=== PATIENT | female | born 1950 | race African-American/Black ===

== ENCOUNTER 2019-04-21 17:46 | Emergency (ER) | payer OTHER, MEDICARE ==
[~2019-04-21] VITALS: Ht 170.2 cm; Wt 72.0 kg
[~2019-04-21 17:46] MED LIST: ASPI81TA45 PO; ATOR40TA78 PO; CALC400T6 PO; CLOP75TA PO; CYCL-259 PO; DIAZ10TA4 PO; DIAZ5TAB PO; GLIP5TAB10 PO; LISI-170 PO; LORA-446 PO; MAGN400O7 PO; METF-163 PO; METF100P3 PO; METO-99 PO; METO25TA35 PO; METO50TA82 PO; ONDA4TAB7 PO; PROP10TA51 PO; SENN-177 PO; SERT50TA28 PO; TRAZ-137 PO; TRAZ150T62 PO
[2019-04-21 18:27] LABS: BASOPHILS # (AUTO) 0.03 x10^3/uL (0-0.1); BASOPHILS % (AUTO) 0 % (0-1); EOSINOPHILS # (AUTO) 0.11 x10^3/uL (0-0.4); EOSINOPHILS % (AUTO) 1 % (1-7); LYMPHOCYTES # (AUTO) 2.46 x10^3/uL (1-3.4); LYMPHOCYTES % (AUTO) 21 % (22-44); MD NO; MEAN CORPUSCULAR HEMOGLOBIN 32.3 pg (27.0-34.8); MEAN CORPUSCULAR VOLUME 97.8 fL (80-100); MEAN PLATELET VOLUME 9.3 fL (7.4-10.4); MONOCYTES # (AUTO) 0.81 x10^3/uL (0.2-0.8); MONOCYTES % (AUTO) 7 % (2-9); NEUTROPHILS # (AUTO) 8.39 x10^3/uL (1.8-6.8); NEUTROPHILS % (AUTO) 71 % (42-75); PLATELET COUNT 304 x10^3/uL (130-400); RED BLOOD COUNT 4.13 x10^6/uL (3.82-5.3); RED CELL DISTRIBUTION WIDTH 15.8 % (9.6-15.2)
[2019-04-21 18:36] LABS: ANION GAP 6 mmol/L (5-15); CALCIUM 9.7 mg/dL (8.5-10.1); CHLORIDE 103 mmol/L (98-107); CREATININE 1.39 mg/dL (0.55-1.02)
--- NOTE | 2019-04-21 18:37 | NUR ---
PT TO ROOM FROM LOBBY BY WHEELCHAIR. NAD NOTED.
[2019-04-21] MEDS ORDERED: MECLIZINE CHEWABLE 25 MG TAB PO ONE (19:30)
[2019-04-21] MEDS ORDERED: MECLIZINE CHEWABLE 25 MG TAB ONE (19:49)
--- NOTE | 2019-04-21 19:57 | NUR ---
PT RESTING IN BED WATCHING FOOTBALL GAME.
[2019-04-21 20:28] LABS: TROPONIN I < 0.015 ng/mL (0.000-0.045)
[2019-04-21] MEDS ORDERED: SODIUM CHLORIDE 0.9% 1,000ML IVBOLUS ONE (21:00)
[2019-04-21] MEDS ORDERED: SODIUM CHLORIDE FLUSH 10ML SYR IVF ONE (21:00)
[2019-04-21 21:06] LABS: MICROSCOPIC AUTO
[2019-04-21 21:09] LABS: CULTURE INDICATED? YES
[2019-04-21 23:25] VITALS: BP 144/78
== END 2019-04-21 23:28 | disposition home or self-care (01) ==
LOC: ED 20:49
DX: R42 Dizziness and giddiness (principal); R55 Syncope and collapse; I12.9 Hypertensive chronic kidney disease with stage 1 through stage 4 chronic kidney disease, or unspecified chronic kidney disease; N18.9 Chronic kidney disease, unspecified; I48.91 Unspecified atrial fibrillation
CPT/HCPCS: 36415; 80048; 81001; 82040; 84484; 85025; 87086; 93005; 96360; 96361; 99284; J7030; 87147

== ENCOUNTER 2019-08-11 16:02 | Emergency (ER) | payer MEDICARE ==
[~2019-08-11] VITALS: Ht 170.2 cm; Wt 74.5 kg
[2019-08-11 17:18] LABS: BASOPHILS # (AUTO) 0.05 x10^3/uL (0-0.1); BASOPHILS % (AUTO) 1 % (0-1); EOSINOPHILS # (AUTO) 0.08 x10^3/uL (0-0.4); EOSINOPHILS % (AUTO) 1 % (1-7); LYMPHOCYTES # (AUTO) 2.08 x10^3/uL (1-3.4); LYMPHOCYTES % (AUTO) 22 % (22-44); MD NO; MEAN CORPUSCULAR HEMOGLOBIN 30.4 pg (27.0-34.8); MEAN CORPUSCULAR HGB CONC 32.5 g/dL (32.4-35.8); MEAN CORPUSCULAR VOLUME 93.3 fL (80-100); MEAN PLATELET VOLUME 9.4 fL (7.4-10.4); MONOCYTES # (AUTO) 0.71 x10^3/uL (0.2-0.8); MONOCYTES % (AUTO) 7 % (2-9); NEUTROPHILS # (AUTO) 6.76 x10^3/uL (1.8-6.8); NEUTROPHILS % (AUTO) 70 % (42-75); PLATELET COUNT 298 x10^3/uL (130-400); RED BLOOD COUNT 4.44 x10^6/uL (3.82-5.3); RED CELL DISTRIBUTION WIDTH 14.5 % (9.6-15.2)
[2019-08-11 17:33] LABS: ANION GAP 6 mmol/L (5-15); CALCIUM 9.4 mg/dL (8.5-10.1); CHLORIDE 96 mmol/L (98-107); CREATININE 1.92 mg/dL (0.55-1.02)
--- NOTE | 2019-08-11 19:05 | NUR ---
PT NIL X 1
[2019-08-11 19:51] LABS: TROPONIN I < 0.015 ng/mL (0.000-0.045)
--- NOTE | 2019-08-11 19:57 | NUR ---
PT BACK TO ROOM AT THIS TIME.
--- NOTE | 2019-08-11 20:05 | NUR ---
PT REPORTS HOME GLUCOMETER READING AT 460 THIS AM., CALLED PRIMARY CARE AND THEY RECOMMENDED SHE BE EVALUATED. DENIES ANY OTHER C/O AT THIS TIME, NO N/V/D, DENIES PEÑA
[2019-08-11] MEDS ORDERED: INSULIN REGULAR 100 UNITS/ML, 3ML VIAL SQ-INSULIN SCH (21:00)
[2019-08-11] MEDS ORDERED: POTASSIUM CHLORIDE 20 MEQ TAB.ER.PRT PO ONE (21:00)
[2019-08-11] MEDS ORDERED: POTASSIUM CHLORIDE 20 MEQ TAB.ER.PRT ONE (21:03)
[2019-08-11] MEDS ORDERED: INSULIN SINGLE DOSE, ER ONE (21:04)
[2019-08-11 21:07] VITALS: BP 142/92
--- NOTE | 2019-08-11 21:10 | NUR ---
PT RESTING ON GURNEY WATCHING TV. MEDICATED PER MAR, VSS. ALL SAFETY MEASURES IN PLACE, PO FLUIDS PROVIDED.
--- NOTE | 2019-08-11 22:06 | NUR ---
PT BS DISCUSSED WITH DR. WARD WHO APPROVED PT D/C HOME.
== END 2019-08-11 22:20 | disposition home or self-care (01) ==
LOC: ED 22:15
DX: R73.9 Hyperglycemia, unspecified (principal); I10 Essential (primary) hypertension; I48.91 Unspecified atrial fibrillation; Z72.89 Other problems related to lifestyle; Z87.891 Personal history of nicotine dependence
CPT/HCPCS: 36415; 80048; 84484; 85025; 93005; 96372; 99284; J1815

== ENCOUNTER 2020-06-28 11:07 | Outpatient (CLI) | payer MEDICARE ==
[~2020-06-28 11:07] MED LIST changes: +ACID1TAB7 PO; +AMOX-291 PO; +ASPI-650 PO; +CARV3.1212 PO; +DIAZ2TAB PO; +DOXY100T PO; +DULO30CA2 PO; +FERR-51 PO; +GLIP10TA13 PO; +HYDR-3237 PO; +INSU100C5 SQ-INSULIN; +OMEP-110 PO; +OMEP20CA20 PO; -TRAZ-137 PO; +TRAZ-175 PO
[2020-06-28] MEDS ORDERED: ALBU90AE INH (12:39)
[2020-06-28] MEDS ORDERED: KETAMINE (12:39)
[2020-06-28] MEDS ORDERED: SERT50TA28 PO (12:39)
[2020-06-28] MEDS ORDERED: FAMO-79 PO (12:39)
[2020-06-28] MEDS ORDERED: clonidine (12:39)
[2020-06-28] MEDS ORDERED: ATOR40TA78 PO (12:39)
[2020-06-28] MEDS ORDERED: hydromorphone (12:39)
[2020-06-28] MEDS ORDERED: LISI-167 PO (12:39)
[2020-06-28] MEDS ORDERED: METO-93 PO (12:39)
[2020-06-28] MEDS ORDERED: GLIP10TA13 PO (12:39)
== END 2020-06-28 23:59 | disposition home or self-care (01) ==
LOC: STAR 11:07
PROVIDERS: ATTEND Internal Medicine Gastroenterology
DX: Z02.9 Encounter for administrative examinations, unspecified (principal)

== ENCOUNTER 2020-07-01 05:38 | Day surgery (SDC) | payer MEDICARE ==
[2020-06-28 13:03] LABS: ALANINE AMINOTRANSFERASE 20 U/L (12-78); ALBUMIN 3.9 g/dL (3.4-5.0); ANION GAP 5 mmol/L (5-15); CALCIUM 8.5 mg/dL (8.5-10.1); CHLORIDE 106 mmol/L (98-107); CREATININE 2.41 mg/dL (0.55-1.02)
[2020-06-28 13:05] LABS: ALKALINE PHOSPHATASE 103 U/L (45-117); BILIRUBIN,TOTAL 0.5 mg/dL (0.2-1.0); TOTAL PROTEIN 7.8 g/dL (6.4-8.2)
[~2020-07-01] VITALS: Ht 170.2 cm; Wt 63.0 kg
[~2020-07-01 05:38] MED LIST changes: +ALBU90AE INH; +FAMO-79 PO; +KETAMINE; +LISI-167 PO; +METO-93 PO; +clonidine; +hydromorphone
[2020-07-01] MEDS ORDERED: CHLORHEXIDINE 15 ML UDC MM STA (06:04)
[2020-07-01 06:22] VITALS: BP 153/87
[2020-07-01] MEDS ORDERED: LACTATED RINGERS 1,000 ML IV SCH (06:30)
[2020-07-01] MEDS ORDERED: PROPOFOL 50 ML ONE (06:54)
[2020-07-01] MEDS ORDERED: MIDAZOLAM 1 MG/ML, 2ML ONE (06:54)
[2020-07-01] MEDS ORDERED: FENTANYL PF 100 MCG/2ML ONE (06:54)
[2020-07-01] MEDS ORDERED: FENTANYL PF 100 MCG/2ML IV PRN (08:00)
== END 2020-07-01 11:30 | disposition home or self-care (01) ==
LOC: OUT 05:38
PROVIDERS: ATTEND Internal Medicine Gastroenterology
DX: K92.1 Melena (principal); Z20.828 Contact with and (suspected) exposure to other viral communicable diseases; K21.9 Gastro-esophageal reflux disease without esophagitis; D12.8 Benign neoplasm of rectum; K64.1 Second degree hemorrhoids; K64.4 Residual hemorrhoidal skin tags; K63.89 Other specified diseases of intestine; K57.30 Diverticulosis of large intestine without perforation or abscess without bleeding; R19.7 Diarrhea, unspecified; R15.9 Full incontinence of feces; I50.9 Heart failure, unspecified; E11.9 Type 2 diabetes mellitus without complications; Z90.49 Acquired absence of other specified parts of digestive tract; Z91.048 Other nonmedicinal substance allergy status
CPT/HCPCS: 36415; 43239; 45380; 45385; 80053; 82962; 87635; 88305; 93005; J2704; J7120; J2250; J3010